=== PATIENT | male | born 1975 | race African-American/Black ===

== ENCOUNTER → 2019-05-20 | Outpatient (CLI) | payer BC ==
[~2019-05-20] MED LIST: IOPAMIDOL 370 MG/ML 200 ML INFUS..BTL INJ ONE; SODIUM CHLORIDE 0.9% 50ML 50 ML ONE
--- NOTE | 2019-05-20 11:23 | Diagnostic Imaging Report ---
CT of the abdomen and pelvis, with contrast, 05/20/2019. History: Lower abdominal pain with radiation to the left lower quadrant. Comparison: None available. Technique: Multidetector CT scanning of the abdomen and pelvis was performed from the level of the lung bases to the inferior pubic rami after intravenous administration of contrast. Oral water was given. Coronal and sagittal multiplanar reformations were obtained. RADIATION DOSE: Total DLP: 280 mGy*cm Dose modulation, iterative reconstruction, and/or weight based adjustment of the mA/kV was utilized to reduce the radiation dose to as low as reasonably achievable. Discussion: LUNG BASES: No visualized abnormalities. ABDOMEN: The liver, gallbladder, biliary tree, spleen, pancreas, adrenal glands, and left kidney are normal. 8 mm hypodensity is present in the upper pole of the right kidney which is too small to characterize. The hepatic vein, portal vein, and splenic vein are patent. The abdominal aorta is within normal limits for size. There is no bowel dilatation or wall thickening. There is no evidence of adenopathy or free fluid. PELVIS: The bladder, prostate, and seminal vesicles are normal in appearance. There is no evidence of free fluid or adenopathy. BONES AND SOFT TISSUES: No acute abnormality. IMPRESSION: Subcentimeter right renal hypodensity which is too small to characterize. Otherwise unremarkable CT of the abdomen and pelvis. No evidence of cholelithiasis, nephrolithiasis, bowel obstruction, or inguinal hernia. Signed by: Yoel Armstrong on 05/20/2019 11:20 AM
== END ==
LOC: CT 09:01
PROVIDERS: ATTEND Internal Medicine Gastroenterology
DX: R10.9 Unspecified abdominal pain (principal)
CPT/HCPCS: 74177; Q9967